=== PATIENT | female | born 1975 | race Caucasian/White ===

== ENCOUNTER 2017-02-26 12:26 | Emergency (ER) | payer SELFPAY ==
[2017-02-26] MEDS ORDERED: Sodium Chloride 0.9% 10 ML Syringe FLUSH PRN (12:45)
[2017-02-26] MEDS ORDERED: Sodium Chloride 0.9% 1,000 ML IV ONE (12:47)
[2017-02-26 12:52] VITALS: BP 131/95
[2017-02-26] MEDS ORDERED: Ketorolac 30 MG/ML SDV IVPUSH ONE (13:18)
[2017-02-26 13:37] LABS: CHLORIDE,CL 102 mmol/L (98-107); SODIUM,NA 141 mmol/L (136-145)
[2017-02-26] MEDS ORDERED: Take Home: Clindamycin HCl 150 MG Cap, 6 Cap Pack PO ONE ×2 (14:21→14:46)
[2017-02-26] MEDS ORDERED: Potassium Chloride 10 MEQ Tab.ER ONE (14:42)
[2017-02-26] MEDS ORDERED: Potassium Chloride 20 MEQ Tab.ER PO ONE (14:59)
[2017-02-26] MEDS ORDERED: Take Home: traMADol 50 MG, 4 Tab Pack PO ONE (14:59)
[2017-02-26] MEDS ORDERED: Potassium Chloride 20 MEQ Packet ONE (15:01)
[2017-02-26] MEDS ORDERED: Potassium Chloride 20 MEQ Tab.ER PO SCH (20:00)
[2017-02-27] MEDS ORDERED: Potassium Chloride 10 MEQ Tab.ER PO ONE (14:17)
--- NOTE | 2017-02-28 08:16 | ER ---
Date of Service: 02/26/2017 SUBJECTIVE: Wallace presents to the emergency room with a constellation of complaints. Her primary complaint is that of pain to her left upper gums. She has had removal of all of her teeth due to severe tooth decay and wears dentures. She states that she has noticed some pain and swelling to this area approximately 4 to 5 days ago. She states that she is unable to wear her dentures. She states that she is also experiencing sore throat. She denies any dysuria. She states she has not been experiencing any cough or congestion. She states that she is also experiencing a mild headache and fatigue. PAST MEDICAL HISTORY: 1. Chronic back pain. 2. Hypertension. 3. Asthma. 4. Bipolar disorder. 5. Schizophrenia. 6. Three previous back surgeries including a spinal fusion. MEDICATIONS: 1. Meloxicam. 2. Lexapro. 3. Lopressor. 4. Lorazepam. 5. Ibuprofen. 6. Acetaminophen. 7. Seroquel. 8. Ropinirole. ALLERGIES: Penicillin. REVIEW OF SYSTEMS: General: Please see history of present illness. She has been experiencing fever, chills, fatigue, weakness, and lightheadedness. She denies any dysuria. Denies any significant abdominal discomfort. PHYSICAL EXAMINATION: General: This is a 41-year-old female patient, who is in mild amount of distress. Vital Signs: Blood pressure is 131/95, heart rate is 111, temperature is 37.8, respiratory rate is 18, O2 saturations 97%. Skin: Warm, pink, and dry. HEENT. Head is normocephalic, atraumatic. Mouth, she does have a lesion to the mucosa of left upper lateral gum with surrounding cellulitis. Neck: Supple with some mild anterior cervical lymphadenopathy. Lungs: Clear to auscultation. Heart: Regular rate and rhythm. Abdomen: Soft, mildly tender in the lower abdomen. There are no masses noted. There is no hepatosplenomegaly noted. Extremities: Without edema. Neurologic: She is alert, oriented, answers all questions appropriately. Her speech is fluent. Her gait is within normal limits. Rapid strep was performed and was positive. HEMATOLOGY: WBC is 13.1, hemoglobin is 12.5, platelets are 294. Coags: PT is 11.5, INR is 1.1. Chemistry: Sodium is 141, potassium is 2.7, chloride is 102, bicarb is 29, BUN is 11, creatinine is 0.9. Creatinine clearance is 66.67, GFR is greater than 60, glucose is 128, lactic acid is 2.0, calcium is 8.0. Total bilirubin is 0.5, AST is 14, ALT is 12, alkaline phosphatase is 135. C-reactive protein is 9.3, albumin is 2.7. Urinalysis was obtained. Specific gravity is 1.025. She has 100 protein, small occult blood, positive nitrites, and a small leukocyte esterase. EMERGENCY ROOM COURSE: IV access was established. She was given a liter of normal saline. She was given 40 mEq of potassium p.o. She remained stable in my care in the emergency room. ASSESSMENT: 1. Open ulcer to gums. 2. Strep pharyngitis. 3. Urinary tract infection. PLAN: We will start her on clindamycin 300 mg twice daily for 10 days. Also, we will start her on potassium chloride 40 mEq twice daily for a few days and then start her on potassium chloride 20 mEq once daily. I would like her to follow up with her primary care provider in the next 7 to 10 days, sooner if not gradually improving. All questions were answered. MWK: 02/28/2017 03:22:55 MODL: 02/28/2017 03:54:41 /[id number]
== END 2017-02-26 15:15 | disposition home or self-care (01) ==
LOC: VM.ED 12:26
DX: K06.8 Other specified disorders of gingiva and edentulous alveolar ridge (principal); J02.0 Streptococcal pharyngitis; N39.0 Urinary tract infection, site not specified; I10 Essential (primary) hypertension; J45.909 Unspecified asthma, uncomplicated; F31.0 Bipolar disorder, current episode hypomanic; F20.9 Schizophrenia, unspecified
CPT/HCPCS: 36415; 71020; 80053; 81003; 83605; 85025; 85610; 86140; 87040; 87081; 87880; 96361; 96374; 99283; A9270; J1885; J7030

== ENCOUNTER 2017-05-12 14:12 | Emergency (ER) | payer SELFPAY ==
[2017-05-12 14:59] VITALS: BP 113/69
--- NOTE | 2017-05-12 16:50 | EDM.PDOC ---
ED HPI GENERAL MEDICAL PROBLEM - General Chief Complaint: Back Pain or Injury Stated Complaint: BACK PAIN Time Seen by Provider: 05/12/17 15:10 Source of Information: Reports: Patient History Limitations: Reports: No Limitations - History of Present Illness INITIAL COMMENTS - FREE TEXT/NARRATIVE: Pt. states that she is having a "flare-up" of acute on chronic low back pain with radiation into both buttocks. She denies any incontinence or saddle anesthesia. Denies any nausea or vomiting today. Denies any chest pain or shortness of breath. No significant weakness. Pt. states that she was seen in [facility] by Dr. Santiago Alanis and was started on Tramadol 50mg every 8 hours which has not been helpful with the discomfort. 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, Other Medication(s) Lower Back Pain Score (Numeric/FACES): 8 Upper Back Pain Score (Numeric/FACES): 8 - Related Data Allergies Allergy/AdvReac Type Severity Reaction Status Date / Time Penicillins Allergy Hives Verified 05/12/17 14:51 Home Meds: Home Meds Albuterol [Proventil HFA] 6.7 gm PO DAILY PRN 07/27/13 [History] Fluticasone/Salmeterol [Advair 100-50 Diskus] 100 mg PO DAILY PRN 07/27/13 [ History] rOPINIRole HCl [Ropinirole HCl] 0.5 mg PO BEDTIME 07/27/13 [History] Calcium Carbonate [Tums Extra Strength] 750 mg PO Q4HR PRN 09/15/14 [History] Acetaminophen [Tylenol Extra Strength] 1,000 mg PO Q4HR PRN 11/08/15 [History] LORazepam 1 mg PO BID 11/08/15 [History] Metoprolol Tartrate [Lopressor] 25 mg PO BID 11/08/15 [History] Escitalopram Oxalate [Lexapro] 20 mg PO DAILY 01/31/16 [History] Meloxicam [Meloxicam] 7.5 mg PO DAILY 03/09/16 [History] LORazepam 0.5 mg PO 1200 02/26/17 [History] QUEtiapine Fumarate [Seroquel Xr] 400 mg PO BEDTIME 02/26/17 [History] QUEtiapine Fumarate [Seroquel] 50 mg PO QID PRN 02/26/17 [History] QUEtiapine [SEROquel] 100 mg PO BEDTIME 02/26/17 [History] tiZANidine [Zanaflex] 4 mg PO Q8H 05/12/17 [History] traMADol [Ultram] 150 mg PO DAILY 05/12/17 [History] Past Medical History HEENT History: Reports: Other (See Below) Other HEENT History: hx. tooth infections. TMJ Cardiovascular History: Reports: Hypertension Other Cardiovascular History: BBB Respiratory History: Reports: Asthma Gastrointestinal History: Reports: None Musculoskeletal History: Reports: Back Pain, Chronic Psychiatric History: Reports: Anxiety, Bipolar, Depression, Schizophrenia - Past Surgical History HEENT Surgical History: Reports: Other (See Below) Other HEENT Surgeries/Procedures: teeth removed GI Surgical History: Reports: Appendectomy, Cholecystectomy Neurological Surgical History: Reports: Spinal Fusion, Other (See Below) Social & Family History - Tobacco Use Smoking Status *Q: Current Every Day Smoker Years of Tobacco use: 25 Packs/Tins Daily: 0.2 Used Tobacco, but Quit: No Month Tobacco Last Used: July 20, 2013 Second Hand Smoke Exposure: No - Alcohol Use Days Per Week of Alcohol Use: 0 - Recreational Drug Use Recreational Drug Use: No Drug Use in Last 12 Months: No Recreational Drug Type: Reports: Marijuana/Hashish Recreational Drug Use Frequency: Not Used In Over 5 Months ED ROS GENERAL - Review of Systems Review Of Systems: See Below Constitutional: Reports: No Symptoms HEENT: Reports: No Symptoms Respiratory: Reports: No Symptoms Cardiovascular: Reports: No Symptoms Endocrine: Reports: No Symptoms GI/Abdominal: Reports: No Symptoms : Reports: No Symptoms Musculoskeletal: Reports: Back Pain (radiating into buttocks. Has chronic back pain and 3 previous back surgeries), Muscle Pain, Muscle Stiffness Skin: Reports: No Symptoms Neurological: Reports: No Symptoms Psychiatric: Reports: No Symptoms Hematologic/Lymphatic: Reports: No Symptoms Immunologic: Reports: No Symptoms ED EXAM,LOWER BACK PAIN/INJURY - Physical Exam Exam: See Below General Appearance: Alert, WD/WN, No Apparent Distress Respiratory/Chest: No Respiratory Distress, Lungs Clear, Normal Breath Sounds, No Accessory Muscle Use, Chest Non-Tender Cardiovascular: Normal Peripheral Pulses, Regular Rate, Rhythm Rectal (Female) Exam: Deferred Back Exam: Normal Inspection, CVA Tenderness (R), Decreased Range of Motion Extremities: Normal Inspection Neurological: Alert, Normal Mood/Affect, Normal Dorsiflexion, CN II-XII Intact, Normal Reflexes, No Motor/Sensory Deficits, Difficulty Walking DTR - Lower Extremities: 2+: Knee (R), Knee (L), Ankle (R), Ankle (L) Psychiatric: Normal Affect, Normal Mood Skin Exam: Warm, Dry, Intact, Normal Color Lymphatic: No Adenopathy Course - Vital Signs Last Recorded V/S: Last Vital Signs Temp 36.8 C 05/12/17 14:53 Pulse 108 H 05/12/17 14:53 Resp 18 05/12/17 14:53 BP 113/69 05/12/17 14:53 Pulse Ox 100 05/12/17 14:53 - Orders/Labs/Meds Orders: Active Orders 24 hr Category Date Time Status Orphenadrine [Norflex] Med 05/12/17 15:30 Active 60 mg IM Q12H Medication Orders Orphenadrine Citrate (Norflex) 60 mg IM Q12H JAMMIE Last Admin: 05/12/17 15:30 Dose: 60 mg Meds: Medications Generic Name Dose Route Start Last Admin Trade Name Clara PRN Reason Stop Dose Admin Orphenadrine Citrate 60 mg 05/12/17 15:30 05/12/17 15:30 Norflex IM 60 mg Q12H JAMMIE Administration Departure - Departure Time of Disposition: 15:33 Disposition: Home, Self-Care 01 Condition: Good Clinical Impression: Low back pain Qualifiers: Chronicity: chronic Back pain laterality: right Sciatica presence: without sciatica Qualified Code(s): M54.5 - Low back pain - Discharge Information Instructions: Back Pain, Adult Referrals: PCP,Unknown [Primary Care Provider] - Forms: ED Department Discharge Additional Instructions: Stop meloxicam Start Ibuprofen 600mg every 6 hours Continue with tramadol as directed If this isn't helping, may take tylenol #3 1 tablet every 6-8 hours as needed for pain Follow-up with Dr. Mccoy next week. - My Orders Last 24 Hours: My Active Orders 05/12/17 15:30 Orphenadrine [Norflex] 60 mg IM Q12H - Assessment/Plan Last 24 Hours: My Active Orders 05/12/17 15:30 Orphenadrine [Norflex] 60 mg IM Q12H
== END 2017-05-12 15:33 | disposition home or self-care (01) ==
LOC: VM.ED 14:12
DX: M54.5 Low back pain (principal); F17.210 Nicotine dependence, cigarettes, uncomplicated; Z88.0 Allergy status to penicillin; Z79.899 Other long term (current) drug therapy
CPT/HCPCS: 96372; 99283; J2360

== ENCOUNTER 2017-09-18 10:06 | Emergency (ER) | payer MEDICAID ==
--- NOTE | 2017-09-18 10:26 | EDM.PDOC ---
ED HPI GENERAL MEDICAL PROBLEM - General Stated Complaint: BACKPAIN Time Seen by Provider: 09/18/17 10:10 Source of Information: Reports: Patient History Limitations: Reports: No Limitations - History of Present Illness INITIAL COMMENTS - FREE TEXT/NARRATIVE: Pt comes into the Emergency department today with 7-10 day history of a severe cough that keeps her up at night and has sputum production. Patient is having troubles laying flat because it will cause her to go into a severe coughing fit. She did have a fever of 100 yesterday but nothing today. She feels her symtpoms are similar as before for bronchitis. She is also complaining of back pain. This is a chronic issue but the pain is more severe now related to her coughing. - Related Data Allergies Allergy/AdvReac Type Severity Reaction Status Date / Time Penicillins Allergy Hives Verified 05/12/17 14:51 Home Meds: Home Meds Albuterol [Proventil HFA] 6.7 gm PO DAILY PRN 07/27/13 [History] Fluticasone/Salmeterol [Advair 100-50 Diskus] 100 mg PO DAILY PRN 07/27/13 [ History] rOPINIRole HCl [Ropinirole HCl] 0.5 mg PO BEDTIME 07/27/13 [History] Calcium Carbonate [Tums Extra Strength] 750 mg PO Q4HR PRN 09/15/14 [History] Acetaminophen [Tylenol Extra Strength] 1,000 mg PO Q4HR PRN 11/08/15 [History] LORazepam 1 mg PO BID 11/08/15 [History] Metoprolol Tartrate [Lopressor] 25 mg PO BID 11/08/15 [History] Escitalopram Oxalate [Lexapro] 20 mg PO DAILY 01/31/16 [History] Meloxicam [Meloxicam] 7.5 mg PO DAILY 03/09/16 [History] LORazepam 0.5 mg PO 1200 02/26/17 [History] QUEtiapine Fumarate [Seroquel Xr] 400 mg PO BEDTIME 02/26/17 [History] QUEtiapine Fumarate [Seroquel] 50 mg PO QID PRN 02/26/17 [History] QUEtiapine [SEROquel] 100 mg PO BEDTIME 02/26/17 [History] tiZANidine [Zanaflex] 4 mg PO Q8H 05/12/17 [History] traMADol [Ultram] 150 mg PO DAILY 05/12/17 [History] Azithromycin [IMW: Azithromycin] 250 mg PO DAILY 4 Days #4 tab 09/18/17 [Rx] Past Medical History HEENT History: Reports: Other (See Below) Other HEENT History: hx. tooth infections. TMJ Cardiovascular History: Reports: Hypertension Other Cardiovascular History: BBB Respiratory History: Reports: Asthma Gastrointestinal History: Reports: None Musculoskeletal History: Reports: Back Pain, Chronic Psychiatric History: Reports: Anxiety, Bipolar, Depression, Schizophrenia - Past Surgical History HEENT Surgical History: Reports: Other (See Below) Other HEENT Surgeries/Procedures: teeth removed GI Surgical History: Reports: Appendectomy, Cholecystectomy Neurological Surgical History: Reports: Spinal Fusion, Other (See Below) Social & Family History - Tobacco Use Smoking Status *Q: Current Every Day Smoker Years of Tobacco use: 24 Packs/Tins Daily: 0.5 Used Tobacco, but Quit: No Month Tobacco Last Used: July 20, 2013 Second Hand Smoke Exposure: No - Alcohol Use Days Per Week of Alcohol Use: 0 - Recreational Drug Use Recreational Drug Use: No Drug Use in Last 12 Months: No Recreational Drug Type: Reports: Marijuana/Hashish Recreational Drug Use Frequency: Not Used In Over 5 Months ED ROS GENERAL - Review of Systems Review Of Systems: See Below Constitutional: Reports: No Symptoms HEENT: Reports: No Symptoms Respiratory: Reports: Cough. Denies: Shortness of Breath, Wheezing, Pleuritic Chest Pain Cardiovascular: Reports: No Symptoms Endocrine: Reports: No Symptoms Musculoskeletal: Reports: No Symptoms Skin: Reports: No Symptoms Neurological: Reports: No Symptoms Psychiatric: Reports: No Symptoms ED EXAM, GENERAL - Physical Exam Exam: See Below Exam Limited By: No Limitations General Appearance: Alert, WD/WN, No Apparent Distress Nose: Normal Inspection, Normal Mucosa, No Blood Head: Atraumatic, Normocephalic Neck: Normal Inspection, Supple, Non-Tender, Full Range of Motion Respiratory/Chest: No Respiratory Distress, Lungs Clear, Normal Breath Sounds, No Accessory Muscle Use, Chest Non-Tender Cardiovascular: Normal Peripheral Pulses, Regular Rate, Rhythm, No Edema Peripheral Pulses: 2+: Radial (L), Radial (R), Dorsalis Pedis (L), Dorsalis Pedis (R) GI/Abdominal: Normal Bowel Sounds, Soft, Non-Tender Back Exam: Normal Inspection, Full Range of Motion Extremities: Normal Inspection, Normal Range of Motion Neurological: Alert, Oriented Skin Exam: Warm, Dry, Intact, Normal Color, No Rash Course - Orders/Labs/Meds Meds: Medications Discontinued Medications Generic Name Dose Route Start Last Admin Trade Name Clara PRN Reason Stop Dose Admin Azithromycin 1 packet 09/18/17 10:41 09/18/17 10:41 Take Home: Azithromycin 250 Mg, 2 Tab Pack PO 09/18/17 10:42 1 packet ONETIME ONE Administration Azithromycin Confirm 09/18/17 10:40 09/18/17 10:43 Take Home: Azithromycin 250 Mg, 2 Tab Pack Administered 09/18/17 10:41 Not Given Dose 1 packet .ROUTE .STK-MED ONE Cyclobenzaprine HCl Confirm 09/18/17 10:40 Take Home: Cyclobenzaprine 10 Mg, 4 Tab Pack Administered 09/18/17 10:41 Dose 1 packet .ROUTE .STK-MED ONE Cyclobenzaprine HCl 1 packet 09/18/17 10:41 09/18/17 10:42 Take Home: Cyclobenzaprine 10 Mg, 4 Tab Pack PO 09/18/17 10:42 1 packet ONETIME ONE Administration Cyclobenzaprine HCl 1 packet 09/18/17 10:41 09/18/17 10:42 Take Home: Cyclobenzaprine 10 Mg, 4 Tab Pack PO 09/18/17 10:42 Not Given ONETIME ONE Departure - Departure Time of Disposition: 10:30 Disposition: Home, Self-Care 01 Condition: Good Clinical Impression: Acute bronchitis Qualifiers: Bronchitis organism: unspecified organism Qualified Code(s): J20.9 - Acute bronchitis, unspecified - Discharge Information Prescriptions: Azithromycin [IMW: Azithromycin] 250 mg PO DAILY 4 Days #4 tab Instructions: Acute Bronchitis, Adult Additional Instructions: 1. use your inhaler as needed. 2. Use ice and heat alternating for 20 minutes 3 times a day to help alleviate back pain 3. Take [id number] pain medication or your prescription pain medication or your prescription muscle relaxers as needed for pain and discomfort 4. Drink lots of fluids 5. Reduced amount of cigarettes smoking while ill 6. Follow-up with chronic pain doctor or PCP if not better within 7-10 days - Assessment/Plan Plan: 1. Pt has prescription pain medication along with muscle relaxers prescribed. pt advised to take those medications 2. [place] pharmacy board medication log was looked up. It was found that the patient has had 87 different prescriptions by 23 providers in the last 2 years 3. Did discuss with the patient that we will not be providing narcotic pain medication here in the emergency department for chronic issues 4. A Z-Cesar was provided for acute bronchitis that has been lasting from 7-10 days and patient is also nonsmoker has a strong history of pneumonia in the past if not treated abruptly 5. Education was provided to the patient regarding smoking sensation 6. Diet and education provided
[2017-09-18] MEDS ORDERED: Take Home: Cyclobenzaprine 10 MG Tab, 4 Tab Pack ONE (10:40)
[2017-09-18] MEDS ORDERED: Take Home: Azithromycin 250 MG, 2 Tab Pack ONE (10:40)
[2017-09-18] MEDS ORDERED: Take Home: Azithromycin 250 MG, 2 Tab Pack PO ONE (10:41)
[2017-09-18] MEDS ORDERED: Take Home: Cyclobenzaprine 10 MG Tab, 4 Tab Pack PO ONE ×2 (10:41)
[2017-09-18 14:28] VITALS: BP 128/88
== END 2017-09-18 10:45 | disposition home or self-care (01) ==
LOC: VM.ED 10:06
DX: J20.9 Acute bronchitis, unspecified (principal); I10 Essential (primary) hypertension; F20.9 Schizophrenia, unspecified; F31.9 Bipolar disorder, unspecified; F17.210 Nicotine dependence, cigarettes, uncomplicated; Z88.0 Allergy status to penicillin; Z79.899 Other long term (current) drug therapy
CPT/HCPCS: 99283; A9270

== ENCOUNTER 2020-04-07 18:00 | Emergency (ER) | payer MEDICAID ==
[2020-04-07 18:12] VITALS: BP 142/91; PULSE 89
--- NOTE | 2020-04-07 18:32 | EDM.PDOC ---
ED HPI GENERAL MEDICAL PROBLEM - General Chief Complaint: ENT Problem Stated Complaint: EAR Time Seen by Provider: 04/07/20 18:09 Source of Information: Reports: Patient - History of Present Illness INITIAL COMMENTS - FREE TEXT/NARRATIVE: Wallace is a 45 y/o female who comes to the ER with left ear pain that started about 2 hours ago. She reported having a small amount of bloody drainage from her left ear. Last week she did have some muffled sounds in her right ear and she thinks that maybe her right ear drum broke while she was sleeping a few nights ago. Denies any drainage from the right ear. No fever. She has been taking Tylenol Cold & Sinus with some relief. Has had a mild cough when laying down and also noticed drainage down the back of her throat. Left Ear Pain Score (Numeric/FACES): 8 - Related Data Allergies Allergy/AdvReac Type Severity Reaction Status Date / Time Penicillins Allergy Hives Verified 04/07/20 18:14 Home Meds: Home Meds Albuterol [Proventil HFA] 6.7 gm PO DAILY PRN 07/27/13 [History] Fluticasone Propion/Salmeterol [Advair 100-50 Diskus] 100 mg PO DAILY PRN 10/05 [History] rOPINIRole HCl [Ropinirole HCl] 0.5 mg PO BEDTIME 07/27/13 [History] Calcium Carbonate [Tums Extra Strength] 750 mg PO Q4HR PRN 09/15/14 [History] Acetaminophen [Tylenol Extra Strength] 1,000 mg PO Q4HR PRN 11/08/15 [History] LORazepam 1 mg PO BID 11/08/15 [History] Metoprolol Tartrate [Lopressor] 25 mg PO BID 11/08/15 [History] Escitalopram Oxalate [Lexapro] 20 mg PO DAILY 01/31/16 [History] Meloxicam 7.5 mg PO DAILY 03/09/16 [History] LORazepam 0.5 mg PO 1200 02/26/17 [History] QUEtiapine Fumarate [Seroquel Xr] 400 mg PO BEDTIME 02/26/17 [History] QUEtiapine Fumarate [Seroquel] 50 mg PO QID PRN 02/26/17 [History] QUEtiapine [SEROquel] 100 mg PO BEDTIME 02/26/17 [History] tiZANidine [Zanaflex] 4 mg PO Q8H 05/12/17 [History] Azithromycin [IMW: Azithromycin] 250 mg PO DAILY 4 Days #4 tab 09/18/17 [Rx] Fexofenadine [Omayra] 180 mg PO DAILY #30 tablet 04/07/20 [Rx] Fluticasone Propionate 2 sprays NS DAILY #30 spray.susp 04/07/20 [Rx] methylPREDNISolone [Medrol] 4 mg PO ASDIRECTED #21 dospk 04/07/20 [Rx] Past Medical History HEENT History: Reports: Other (See Below) Other HEENT History: hx. tooth infections. TMJ Cardiovascular History: Reports: Hypertension Other Cardiovascular History: BBB Respiratory History: Reports: Asthma Gastrointestinal History: Reports: None Musculoskeletal History: Reports: Back Pain, Chronic Psychiatric History: Reports: Anxiety, Bipolar, Depression, Schizophrenia - Past Surgical History HEENT Surgical History: Reports: Other (See Below) Other HEENT Surgeries/Procedures: teeth removed GI Surgical History: Reports: Appendectomy, Cholecystectomy Neurological Surgical History: Reports: Spinal Fusion, Other (See Below) Social & Family History - Tobacco Use Smoking Status *Q: Unknown Ever Smoked Review of Systems - Review of Systems Review Of Systems: See Below Constitutional: Reports: No Symptoms Eyes: Reports: No Symptoms Ears: Reports: Pain, Bloody Discharge, Other (Hearing sounds muffled) Nose: Reports: Congestion, Other (Yellow drainage) Mouth/Throat: Reports: No Symptoms Respiratory: Reports: Cough (mild) Cardiovascular: Reports: No Symptoms GI/Abdominal: Reports: No Symptoms Genitourinary: Reports: No Symptoms Musculoskeletal: Reports: No Symptoms Skin: Reports: No Symptoms Neurological: Reports: No Symptoms Psychiatric: Reports: No Symptoms ED EXAM, GENERAL - Physical Exam Exam: See Below Exam Limited By: No Limitations General Appearance: Alert, WD/WN, No Apparent Distress (Adult female.) Eye Exam: Bilateral Eye: PERRL Ears: Hearing Grossly Normal, Other (Bialteral TMs pearce with slight retraction and air-fluid levels noted. Note small irritation to left ear canal, no active bleeding or drainage appreciated) Nose: Other (Nasal mucose irritated and erythematous) Throat/Mouth: Normal Inspection, Normal Lips, Normal Voice, Other (Edentulous) Head: Atraumatic, Normocephalic Neck: Normal Inspection, Supple, Non-Tender Respiratory/Chest: No Respiratory Distress, Lungs Clear, Normal Breath Sounds, Chest Non-Tender Cardiovascular: Normal Peripheral Pulses, Regular Rate, Rhythm, No Murmur GI/Abdominal: Normal Bowel Sounds, Soft, Non-Tender, No Organomegaly (Female) Exam: Deferred Rectal (Female) Exam: Deferred Back Exam: Normal Inspection Extremities: Normal Inspection, Normal Capillary Refill Neurological: Alert, Oriented, CN II-XII Intact Psychiatric: Normal Affect, Normal Mood Skin Exam: Warm, Dry, Intact, Normal Color Lymphatic: No Adenopathy Course - Vital Signs Text/Narrative:: 1809 The patient was seen by the BUILDING PERFORMANCE SPECIALIST. No labs or other diagnostics indicated. Will treat patient with antihistamines, oral steroids, and nasal steroids. Questions answered. She was given discharge instructions and left the ER in stable condition. Last Recorded V/S: Last Vital Signs Temp 36.7 C 04/07/20 18:05 Pulse 89 04/07/20 18:05 Resp 16 04/07/20 18:05 BP 142/91 H 04/07/20 18:05 Pulse Ox 96 04/07/20 18:05 Departure - Departure Time of Disposition: 18:25 Disposition: Home, Self-Care 01 Condition: Good Clinical Impression: Eustachian tube dysfunction, Allergic rhinitis - Discharge Information *PRESCRIPTION DRUG MONITORING PROGRAM REVIEWED*: No *COPY OF PRESCRIPTION DRUG MONITORING REPORT IN PATIENT JUS: No Prescriptions: Fexofenadine [Omayra] 180 mg PO DAILY #30 tablet Fluticasone Propionate 2 sprays NS DAILY #30 spray.susp methylPREDNISolone [Medrol] 4 mg PO ASDIRECTED #21 dospk Instructions: Eustachian Tube Dysfunction, Allergic Rhinitis, Adult Referrals: Crow Alanis MD [Primary Care Provider] - Forms: ED Department Discharge Additional Instructions: -Fexofenadine (Omayra) 1 tablet daily. May use OTC meds. -Fluticasone propionate (50mcg/spray) 2 sprays each nare daily. May use over the counter meds._ -Medrol Dose Pack 4mg oral daily as directed on package. -Obtain a nasal rinse kit. This will help with your congestion. -Return to the ER if your symptoms are not improving or follow up with your PCP. Sepsis Event Note (ED) - Evaluation Sepsis Screening Result: No Definite Risk - Focused Exam Vital Signs: Vital Signs Temp Pulse Resp BP Pulse Ox 04/07/20 18:05 36.7 C 89 16 142/91 H 96
== END 2020-04-07 18:48 | disposition home or self-care (01) ==
LOC: VM.ED 18:00
DX: H69.92 Unspecified Eustachian tube disorder, left ear (principal); J30.9 Allergic rhinitis, unspecified; F41.9 Anxiety disorder, unspecified; F31.9 Bipolar disorder, unspecified; J45.909 Unspecified asthma, uncomplicated; F20.9 Schizophrenia, unspecified; I10 Essential (primary) hypertension; Z79.899 Other long term (current) drug therapy; Z88.0 Allergy status to penicillin
CPT/HCPCS: 99283; 99284

== ENCOUNTER 2020-10-17 13:37 | Emergency (ER) | payer MEDICAID ==
--- NOTE | 2020-10-17 14:19 | EDM.PDOC ---
<Mary CarmenDurga W - Last Filed: 10/17/20 18:13> ED HPI GENERAL MEDICAL PROBLEM - General Stated Complaint: ER Time Seen by Provider: 10/17/20 13:55 Source of Information: Reports: Patient, EMS History Limitations: Reports: No Limitations - History of Present Illness INITIAL COMMENTS - FREE TEXT/NARRATIVE: Pt. presents to ER via EMS with complaints of fatigue. Pt. states that she used methamphetamine for the first time yesterday. She states that after she came down off of the drug, she noticed that she was very fatigued and wanted to sleep. She states that she also uses marijuana regularly. Denies any other street drug use. No recent use of alcohol. Pt. states that she got the meth from someone else, and subsequently does't know the composition. She states that she was not fatigued immediately after taking it, and states that those symptoms started today. Pt. denies any other complaints. No fever or chills. No chest pain or shortness of breath. She does complain of some mild nausea. She states that she hasn't recently been ill. She denies any headache, head trauma, falls, numbness/tingling in extremities, problems with speech/ambulation, acute vision loss or change. Pt. denies any suicidal or homicidal ideation. Onset: Today Location: Reports: Generalized Associated Symptoms: Reports: Malaise, Nausea/Vomiting. Denies: Confusion, Chest Pain, Cough, cough w sputum, Diaphoresis, Fever/Chills, Rash, Seizure, Shortness of Breath, Syncope, Weakness - Related Data Allergies Allergy/AdvReac Type Severity Reaction Status Date / Time Penicillins Allergy Hives Verified 10/17/20 15:38 Home Meds: Home Meds Albuterol [Proventil HFA] 1 puff PO Q4H PRN 07/27/13 [History] rOPINIRole HCl [Ropinirole HCl] 0.5 mg PO BEDTIME 07/27/13 [History] LORazepam 1 mg PO BID 11/08/15 [History] Metoprolol Tartrate [Lopressor] 25 mg PO BID 11/08/15 [History] Escitalopram Oxalate [Lexapro] 20 mg PO DAILY 01/31/16 [History] Meloxicam 7.5 mg PO BID 03/09/16 [History] LORazepam 0.5 mg PO 1200 PRN 02/26/17 [History] QUEtiapine [SEROquel] 100 mg PO BID 02/26/17 [History] Lysine 500 mg PO BID 10/17/20 [History] Metaxalone [Skelaxin] 800 mg PO TID 10/17/20 [History] Mirtazapine [Remeron] 30 mg PO BEDTIME 10/17/20 [History] Omeprazole 20 mg PO DAILY 10/17/20 [History] Pregabalin [Lyrica] 225 mg PO BID 10/17/20 [History] QUEtiapine Fumarate [Seroquel] 600 mg PO BEDTIME 10/17/20 [History] Sulfamethoxazole/Trimethoprim [Bactrim Ds Tablet] 1 each PO BID #10 tablet 10/17/20 [Rx] traMADol [Ultram] 50 mg PO BID PRN 10/17/20 [History] Past Medical History HEENT History: Reports: Other (See Below) Other HEENT History: hx. tooth infections. TMJ Cardiovascular History: Reports: Hypertension Other Cardiovascular History: BBB Respiratory History: Reports: Asthma Gastrointestinal History: Reports: None Musculoskeletal History: Reports: Back Pain, Chronic Psychiatric History: Reports: Anxiety, Bipolar, Depression, Schizophrenia - Past Surgical History HEENT Surgical History: Reports: Other (See Below) Other HEENT Surgeries/Procedures: teeth removed GI Surgical History: Reports: Appendectomy, Cholecystectomy Neurological Surgical History: Reports: Spinal Fusion, Other (See Below) ED ROS GENERAL - Review of Systems Review Of Systems: See Below Constitutional: Reports: Malaise, Fatigue HEENT: Reports: No Symptoms Respiratory: Reports: No Symptoms Cardiovascular: Reports: No Symptoms Endocrine: Reports: No Symptoms GI/Abdominal: Reports: No Symptoms : Reports: No Symptoms Musculoskeletal: Reports: No Symptoms Skin: Reports: No Symptoms Neurological: Reports: No Symptoms Psychiatric: Reports: No Symptoms Hematologic/Lymphatic: Reports: No Symptoms Immunologic: Reports: No Symptoms ED EXAM, GENERAL - Physical Exam Exam: See Below Exam Limited By: No Limitations General Appearance: Alert, WD/WN, No Apparent Distress Nose: Normal Inspection, No Blood Throat/Mouth: Normal Inspection, Normal Lips, Normal Oropharynx, Normal Voice Head: Atraumatic, Normocephalic Neck: Normal Inspection, Supple, Non-Tender, Full Range of Motion Respiratory/Chest: No Respiratory Distress, Lungs Clear, Normal Breath Sounds, No Accessory Muscle Use, Chest Non-Tender Cardiovascular: Normal Peripheral Pulses, Regular Rate, Rhythm, No Edema, No Gallop, No JVD, No Rub Peripheral Pulses: 4+: Radial (R) GI/Abdominal: Soft, Non-Tender, No Distention, No Mass (Female) Exam: Deferred Rectal (Female) Exam: Deferred Extremities: Normal Inspection, Normal Range of Motion, Non-Tender Neurological: Alert, Oriented, CN II-XII Intact, Normal Cognition, No Motor/Sensory Deficits Psychiatric: Normal Affect, Depressed Mood, Flat Affect Skin Exam: Warm, Dry, Intact, Normal Color Departure - Departure Time of Disposition: 15:00 Disposition: Home, Self-Care 01 Clinical Impression: UTI (urinary tract infection) - Discharge Information Prescriptions: Sulfamethoxazole/Trimethoprim [Bactrim Ds Tablet] 1 each PO BID #10 tablet Instructions: Urinary Tract Infection, Adult, Sulfamethoxazole; Trimethoprim, SMX-TMP tablets, Methamphetamines Use Disorder, Probiotics Referrals: Lisbeth Teran MD [Primary Care Provider] - Forms: ED Department Discharge Additional Instructions: I think the most likely cause of your fatigue are the use of methadone, and coming down off of meth. All of the rest of your labs are all within normal limits. Bactrim DS 1 twice daily for 5 days for UTI I advise you to avoid any street drugs, or medications that are not prescribed to you. Recheck in clinic in 7-10 days. <Kendrick Altman - Last Filed: 10/19/20 21:10> Course - Vital Signs Last Recorded V/S: Last Vital Signs Temp 97.4 F 10/17/20 13:40 Pulse 82 10/17/20 14:30 Resp 16 10/17/20 14:30 BP 145/72 H 10/17/20 14:30 Pulse Ox 97 10/17/20 14:30 - Orders/Labs/Meds Labs: Laboratory Tests 10/17/20 10/17/20 10/17/20 Range/Units 14:07 14:42 14:42 WBC 9.7 (4.0-10.0) x10^3/uL RBC 4.16 (4.00-5.50) x10^6/uL Hgb 13.2 (12.0-16.0) g/dL Hct 38.6 (33.0-47.0) % MCV 92.8 (78.0-93.0) fL MCH 31.7 (26.0-32.0) pg MCHC 34.2 (32.0-36.0) g/dL RDW Coeff of [place] 14.1 (10.0-15.0) % Plt Count 241 (130-400) x10^3/uL Add Manual Diff Yes Neutrophils % (Manual) 58 (50-80) % Band Neutrophils % 2 (0-6) % Lymphocytes % (Manual) 36 (25-50) % Monocytes % (Manual) 4 (2-11) % Platelet Estimate Adequate PT 12.6 H (9.9-12.5) SEC INR 1.1 L (2.0-3.5) APTT (25.6-32.8) SEC Sodium (136-145) mmol/L Potassium (3.5-5.1) mmol/L Chloride (98-107) mmol/L Carbon Dioxide (21-32) mmol/L Anion Gap (5-15) mmol/L BUN (7-18) mg/dL Creatinine (0.55-1.02) mg/dL Est Cr Clr Drug Dosing mL/min Estimated GFR (MDRD) Glucose (74-106) mg/dL Calcium (8.5-10.1) mg/dL Corrected Calcium (8.5-10.1) mg/dL Total Bilirubin (0.2-1.0) mg/dL AST (15-37) U/L ALT (14-59) U/L Alkaline Phosphatase (46-116) U/L Troponin I High Sens (<=51) ng/L Total Protein (6.4-8.2) g/dL Albumin (3.4-5.0) g/dL Globulin Albumin/Globulin Ratio Urine Color (YELLOW) Urine Appearance (CLEAR) Urine pH (5.0-8.0) Ur Specific [place] Urine Protein (NEGATIVE) mg/dL Urine Glucose (UA) (NEGATIVE) mg/dL Urine Ketones (NEGATIVE) mg/dL Urine Occult Blood (NEGATIVE) Urine Nitrite (NEGATIVE) Urine Bilirubin (NEGATIVE) Urine Urobilinogen (0.2) EU/dL Ur Leukocyte Esterase (NEGATIVE) U Hyaline Cast (Auto) Urine RBC (NOT SEEN) /HPF Urine WBC (NOT SEEN) /HPF Ur Squamous Epith Cells (NOT SEEN) /HPF Urine Bacteria (NOT SEEN) /HPF Urine Mucus (NOT SEEN) /LPF Urine HCG, Qual (NEGATIVE) Urine Opiates Screen (NEGATIVE) Ur Buprenorphine Scrn (NEGATIVE) Ur Oxycodone Screen (NEGATIVE) Ur EDDP (Meth Metab) (NEGATIVE) Urine Methadone Screen (NEGATIVE) Ur Barbiturates Screen (NEGATIVE) Ur Tricyclics Screen (NEGATIVE) Ur Phencyclidine Scrn (NEGATIVE) Ur Amphetamine Screen (NEGATIVE) U Methamphetamines Scrn (NEGATIVE) Urine MDMA Screen (NEGATIVE) U Benzodiazepines Scrn (NEGATIVE) U Cocaine Metab Screen (NEGATIVE) U Marijuana (THC) Screen (NEGATIVE) Ethyl Alcohol (0-3) mg/dL SARS CoV-2 RNA Rapid GALEN Negative (NEGATIVE) 10/17/20 10/17/20 10/17/20 Range/Units 14:42 15:07 15:55 WBC (4.0-10.0) x10^3/uL RBC (4.00-5.50) x10^6/uL Hgb (12.0-16.0) g/dL Hct (33.0-47.0) % MCV (78.0-93.0) fL MCH (26.0-32.0) pg MCHC (32.0-36.0) g/dL RDW Coeff of [place] (10.0-15.0) % Plt Count (130-400) x10^3/uL Add Manual Diff Neutrophils % (Manual) (50-80) % Band Neutrophils % (0-6) % Lymphocytes % (Manual) (25-50) % Monocytes % (Manual) (2-11) % Platelet Estimate PT (9.9-12.5) SEC INR (2.0-3.5) APTT 19.6 L (25.6-32.8) SEC Sodium 143 (136-145) mmol/L Potassium 3.3 L (3.5-5.1) mmol/L Chloride 108 H (98-107) mmol/L Carbon Dioxide 25 (21-32) mmol/L Anion Gap 13.3 (5-15) mmol/L BUN 9 (7-18) mg/dL Creatinine 1.0 (0.55-1.02) mg/dL Est Cr Clr Drug Dosing 65.11 mL/min Estimated GFR (MDRD) 59 Glucose 86 (74-106) mg/dL Calcium 8.1 L (8.5-10.1) mg/dL Corrected Calcium 8.82 (8.5-10.1) mg/dL Total Bilirubin 0.2 (0.2-1.0) mg/dL AST 14 L (15-37) U/L ALT 18 (14-59) U/L Alkaline Phosphatase 118 H (46-116) U/L Troponin I High Sens < 4 (<=51) ng/L Total Protein 7.6 (6.4-8.2) g/dL Albumin 3.1 L (3.4-5.0) g/dL Globulin 4.5 Albumin/Globulin Ratio 0.69 Urine Color Dark yellow H (YELLOW) Urine Appearance Slightly cloudy H (CLEAR) Urine pH 5.5 (5.0-8.0) Ur Specific [place] 1.025 Urine Protein 30 H (NEGATIVE) mg/dL Urine Glucose (UA) Negative (NEGATIVE) mg/dL Urine Ketones Negative (NEGATIVE) mg/dL Urine Occult Blood Negative (NEGATIVE) Urine Nitrite Positive H (NEGATIVE) Urine Bilirubin Small H (NEGATIVE) Urine Urobilinogen 0.2 (0.2) EU/dL Ur Leukocyte Esterase Negative (NEGATIVE) U Hyaline Cast (Auto) Many Urine RBC 0-5 (NOT SEEN) /HPF Urine WBC 0-5 (NOT SEEN) /HPF Ur Squamous Epith Cells Rare (NOT SEEN) /HPF Urine Bacteria Moderate H (NOT SEEN) /HPF Urine Mucus Rare H (NOT SEEN) /LPF Urine HCG, Qual (NEGATIVE) Urine Opiates Screen (NEGATIVE) Ur Buprenorphine Scrn (NEGATIVE) Ur Oxycodone Screen (NEGATIVE) Ur EDDP (Meth Metab) (NEGATIVE) Urine Methadone Screen (NEGATIVE) Ur Barbiturates Screen (NEGATIVE) Ur Tricyclics Screen (NEGATIVE) Ur Phencyclidine Scrn (NEGATIVE) Ur Amphetamine Screen (NEGATIVE) U Methamphetamines Scrn (NEGATIVE) Urine MDMA Screen (NEGATIVE) U Benzodiazepines Scrn (NEGATIVE) U Cocaine Metab Screen (NEGATIVE) U Marijuana (THC) Screen (NEGATIVE) Ethyl Alcohol < 3 (0-3) mg/dL SARS CoV-2 RNA Rapid GALEN (NEGATIVE) 10/17/20 10/17/20 Range/Units 15:55 15:55 WBC (4.0-10.0) x10^3/uL RBC (4.00-5.50) x10^6/uL Hgb (12.0-16.0) g/dL Hct (33.0-47.0) % MCV (78.0-93.0) fL MCH (26.0-32.0) pg MCHC (32.0-36.0) g/dL RDW Coeff of [place] (10.0-15.0) % Plt Count (130-400) x10^3/uL Add Manual Diff Neutrophils % (Manual) (50-80) % Band Neutrophils % (0-6) % Lymphocytes % (Manual) (25-50) % Monocytes % (Manual) (2-11) % Platelet Estimate PT (9.9-12.5) SEC INR (2.0-3.5) APTT (25.6-32.8) SEC Sodium (136-145) mmol/L Potassium (3.5-5.1) mmol/L Chloride (98-107) mmol/L Carbon Dioxide (21-32) mmol/L Anion Gap (5-15) mmol/L BUN (7-18) mg/dL Creatinine (0.55-1.02) mg/dL Est Cr Clr Drug Dosing mL/min Estimated GFR (MDRD) Glucose (74-106) mg/dL Calcium (8.5-10.1) mg/dL Corrected Calcium (8.5-10.1) mg/dL Total Bilirubin (0.2-1.0) mg/dL AST (15-37) U/L ALT (14-59) U/L Alkaline Phosphatase (46-116) U/L Troponin I High Sens (<=51) ng/L Total Protein (6.4-8.2) g/dL Albumin (3.4-5.0) g/dL Globulin Albumin/Globulin Ratio Urine Color (YELLOW) Urine Appearance (CLEAR) Urine pH (5.0-8.0) Ur Specific [place] Urine Protein (NEGATIVE) mg/dL Urine Glucose (UA) (NEGATIVE) mg/dL Urine Ketones (NEGATIVE) mg/dL Urine Occult Blood (NEGATIVE) Urine Nitrite (NEGATIVE) Urine Bilirubin (NEGATIVE) Urine Urobilinogen (0.2) EU/dL Ur Leukocyte Esterase (NEGATIVE) U Hyaline Cast (Auto) Urine RBC (NOT SEEN) /HPF Urine WBC (NOT SEEN) /HPF Ur Squamous Epith Cells (NOT SEEN) /HPF Urine Bacteria (NOT SEEN) /HPF Urine Mucus (NOT SEEN) /LPF Urine HCG, Qual Negative (NEGATIVE) Urine Opiates Screen Negative (NEGATIVE) Ur Buprenorphine Scrn Negative (NEGATIVE) Ur Oxycodone Screen Negative (NEGATIVE) Ur EDDP (Meth Metab) Negative (NEGATIVE) Urine Methadone Screen Positive H (NEGATIVE) Ur Barbiturates Screen Positive H (NEGATIVE) Ur Tricyclics Screen Positive H (NEGATIVE) Ur Phencyclidine Scrn Negative (NEGATIVE) Ur Amphetamine Screen Positive H (NEGATIVE) U Methamphetamines Scrn Positive H (NEGATIVE) Urine MDMA Screen Negative (NEGATIVE) U Benzodiazepines Scrn Positive H (NEGATIVE) U Cocaine Metab Screen Negative (NEGATIVE) U Marijuana (THC) Screen Positive H (NEGATIVE) Ethyl Alcohol (0-3) mg/dL SARS CoV-2 RNA Rapid GALEN (NEGATIVE) - Re-Assessments/Exams Free Text/Narrative Re-Assessment/Exam: 10/19/20 21:09 Urine culture returned today with Kleb Pneumoniae. She is ni sensitive and was placed on bactrim prior to discharge.
[2020-10-17 15:35] LABS: CHLORIDE,CL 108 mmol/L (98-107); SODIUM,NA 143 mmol/L (136-145)
[2020-10-17 15:37] LABS: ANION GAP 13.3 mmol/L (5-15)
[2020-10-17 16:08] LABS: BARBITURATE SCREEN,URINE POSITIVE (NEGATIVE); BENZODIAZEPINES SCREEN,URINE POSITIVE (NEGATIVE); EDDP,URINE SCREEN NEGATIVE (NEGATIVE)
[2020-10-17 16:09] LABS: METHAMPHETAMINE SCREEN, URINE POSITIVE (NEGATIVE); TCA SCREEN,URINE POSITIVE (NEGATIVE); THC SCREEN,URINE 50 NG/ML POSITIVE (NEGATIVE)
[2020-10-17 16:52] VITALS: BP 145/72; PULSE 82
== END 2020-10-17 16:30 | disposition home or self-care (01) ==
LOC: VM.ED 13:37
DX: N39.0 Urinary tract infection, site not specified (principal); I10 Essential (primary) hypertension; J45.909 Unspecified asthma, uncomplicated; Z20.822 Contact with and (suspected) exposure to COVID-19; Z88.0 Allergy status to penicillin; Z79.899 Other long term (current) drug therapy
CPT/HCPCS: 36415; 80053; 80305-QW; 80307; 81001; 81025; 84484; 85025; 85610; 85730; 87086; 87088; 87186; 93005; 99283; 99284-25; U0002

== ENCOUNTER 2022-09-06 15:49 | Observation (INO) | payer BC, MEDICAID ==
[2022-09-06 16:32] LABS: CHLORIDE,CL 103 mmol/L (98-107); SODIUM,NA 141 mmol/L (136-145)
[2022-09-06 16:34] LABS: ANION GAP 11.1 mmol/L (5-15); ESTIMATED GFR 69 mL/min (>=60)
[2022-09-06 17:31] LABS: BARBITURATE SCREEN,URINE NEGATIVE (NEGATIVE); BENZODIAZEPINES SCREEN,URINE POSITIVE (NEGATIVE); BUPRENORPHINE SCREEN,URINE NEGATIVE (NEGATIVE)
[2022-09-06 17:32] LABS: METHAMPHETAMINE SCREEN, URINE POSITIVE (NEGATIVE); THC SCREEN,URINE 50 NG/ML POSITIVE (NEGATIVE)
[2022-09-06] MEDS ORDERED: Take Home: Sulfamethoxazole/Trimethoprim 800-160 MG Tab, 6 Tab Pack PO ONE (17:40)
[2022-09-06] MEDS ORDERED: Sodium Chloride 0.9% 10 ML Syringe FLUSH PRN (18:07)
[2022-09-06] MEDS ORDERED: cefTRIAXone 2 GM Vial IVPUSH ONE (18:07)
[2022-09-06] MEDS ORDERED: traMADol 50 MG Tab PO PRN (18:53)
[2022-09-06] MEDS ORDERED: Albuterol HFA 18 Gm Inhaler INH PRN (18:53)
[2022-09-06] MEDS ORDERED: NS + KCl 20mEq/L 1,000 ML IV SCH (19:00)
[2022-09-06] MEDS: Pregabalin 50 MG Cap PO SCH (20:02)
[2022-09-06] MEDS: Metoprolol Tartrate 25 MG Tab PO SCH (20:02)
[2022-09-06] MEDS: Meloxicam 7.5 MG Tab PO SCH (20:03)
[2022-09-06] MEDS ORDERED: rOPINIRole 0.5 MG Tab PO SCH (21:00)
[2022-09-06] MEDS ORDERED: Mirtazapine 30 MG Tab PO SCH (21:00)
[2022-09-06] MEDS ORDERED: QUEtiapine 100 MG Tab PO SCH (22:15)
[2022-09-07] MEDS ORDERED: QUEtiapine 25 MG Tab PO SCH (09:00)
[2022-09-07] MEDS ORDERED: Omeprazole 20 MG Cap.CR PO SCH (09:00)
[2022-09-07] MEDS ORDERED: Citalopram 20 MG Tab PO SCH (09:00)
[2022-09-07] MEDS: Pregabalin 50 MG Cap PO SCH ×2 (09:47→13:21)
[2022-09-07] MEDS: Metoprolol Tartrate 25 MG Tab PO SCH (09:48)
[2022-09-07] MEDS: Meloxicam 7.5 MG Tab PO SCH (09:55)
[2022-09-07] MEDS ORDERED: NS with KCl 40mEq 1,000 ML IV SCH (13:00)
[2022-09-07 17:49] LABS: ANION GAP 10.6 mmol/L (5-15)
[2022-09-07] MEDS ORDERED: cefTRIAXone 2 GM Vial IVPUSH SCH (18:00)
[2022-09-07] MEDS ORDERED: QUEtiapine 100 MG Tab PO SCH (21:00)
[2022-09-07] MEDS ORDERED: LYSINE 500 MG PO SCH (21:00)
== END 2022-09-07 19:05 | disposition home or self-care (01) ==
LOC: VM.ED 15:49 → MERGE 18:15 → VM.MS 18:15
PROVIDERS: ADMIT Physician Assistant; ATTEND Physician Assistant
DX: M51.36 Other intervertebral disc degeneration, lumbar region (principal); F41.9 Anxiety disorder, unspecified; G47.00 Insomnia, unspecified; J45.909 Unspecified asthma, uncomplicated; Z88.0 Allergy status to penicillin; Z79.899 Other long term (current) drug therapy; Z98.890 Other specified postprocedural states; Z87.891 Personal history of nicotine dependence
CPT/HCPCS: 36415; 72131; 80048; 80053; 80305-QW; 80307; 81001; 83605; 83735; 84100; 85025; 86140; 87040; 87086; 87088; 87186; 96374; 96376; 97161-GP; 99285-25; A9270-GY; G0378; J0696; J3480

== ENCOUNTER 2022-10-03 13:06 | Emergency (ER) | payer MEDICAID ==
[2022-10-03] MEDS ORDERED: Propofol 200 MG/20 ML SDV ONE (13:08)
[2022-10-03] MEDS ORDERED: cefTRIAXone 2 GM Vial ONE ×2 (13:08→14:35)
[2022-10-03] MEDS ORDERED: Naloxone 0.4 MG/ML SDV ONE ×3 (13:08→15:59)
[2022-10-03] MEDS ORDERED: Rocuronium 50 MG/5 ML Vial ONE ×3 (13:08→14:42)
[2022-10-03] MEDS ORDERED: Midazolam 1 MG/ML 2 ML SDV ONE ×2 (13:08)
[2022-10-03] MEDS ORDERED: Flumazenil 0.1 MG/ML 5 ML MDV ONE ×2 (13:08)
[2022-10-03] MEDS ORDERED: Naloxone 2 MG/2 ML Syringe IVPUSH PRN (13:12)
[2022-10-03] MEDS ORDERED: Sodium Chloride 0.9% 1,000 ML IV ONE ×2 (13:14→13:15)
[2022-10-03] MEDS ORDERED: Flumazenil 0.1 MG/ML 5 ML MDV IVPUSH ONE (13:15)
[2022-10-03] MEDS ORDERED: Albuterol/Ipratropium 3.0-0.5 MG/3 ML Neb Soln NEB ONE (13:17)
[2022-10-03 13:56] LABS: CHLORIDE,CL 103 mmol/L (98-107); SODIUM,NA 138 mmol/L (136-145)
[2022-10-03 13:59] LABS: ANION GAP 12.6 mmol/L (5-15); ESTIMATED GFR 42 mL/min (>=60)
[2022-10-03] MEDS ORDERED: Succinylcholine 200 MG/10 ML MDV ONE (13:59)
[2022-10-03 14:01] LABS: BARBITURATE SCREEN,URINE NEGATIVE (NEGATIVE); BENZODIAZEPINES SCREEN,URINE POSITIVE (NEGATIVE); METHAMPHETAMINE SCREEN, URINE NEGATIVE (NEGATIVE); THC SCREEN,URINE 50 NG/ML POSITIVE (NEGATIVE)
[2022-10-03 14:02] LABS: BUPRENORPHINE SCREEN,URINE POSITIVE (NEGATIVE)
[2022-10-03] MEDS ORDERED: Midazolam 1 MG/ML 2 ML SDV IVPUSH ONE (15:15)
[2022-10-03] MEDS ORDERED: Rocuronium 50 MG/5 ML Vial IVPUSH ONE (15:15)
[2022-10-03] MEDS ORDERED: Propofol 200 MG/20 ML SDV IVPUSH ONE (15:15)
[2022-10-03] MEDS ORDERED: Succinylcholine 200 MG/10 ML MDV IVPUSH ONE (15:17)
[2022-10-03] MEDS ORDERED: cefTRIAXone 2 GM Vial IVPUSH ONE (15:18)
[2022-10-03] MEDS ORDERED: Flumazenil 0.1 MG/ML 5 ML MDV IVPUSH PRN (15:18)
== END 2022-10-03 14:45 | disposition short-term general hospital (02) ==
LOC: VM.ED 13:06
DX: T50.904A Poisoning by unspecified drugs, medicaments and biological substances, undetermined, initial encounter (principal); J45.909 Unspecified asthma, uncomplicated; Z88.0 Allergy status to penicillin; Z79.899 Other long term (current) drug therapy
CPT/HCPCS: 36415; 43752; 51702; 71045; 80053; 80305; 80307; 81001; 85025; 93005; 94002; 99285; J0330; J0696; J2250; J2310; J2704; J3490; J7030; 31500